=== PATIENT | male | born 1940 | race Caucasian/White ===

== ENCOUNTER → 2022-01-24 | Outpatient (CLI) | payer MEDICARE, OTHER ==
--- NOTE | 2022-01-24 17:55 | Diagnostic Imaging Report ---
INDICATION: Knee pain COMPARISON: None available. TECHNIQUE: 8 radiographs of the bilateral knees dated 01/24/2022. FINDINGS: Right: No acute fracture or dislocation. No destructive osseous process. Severe medial joint space narrowing and mild lateral joint space narrowing. Minimal osteophytosis. No knee joint effusion. Calcifications are noted involving the distal quadriceps tendon. Advanced background vascular calcifications. The patella is well seated within the trochlea. Left: No acute fracture or dislocation. No destructive osseous process. Severe medial joint space narrowing and mild lateral joint space narrowing. Faint chondrocalcinosis of the menisci suggested. No knee joint effusion. Calcifications associated with the distal quadriceps tendon. Advanced background vascular calcifications. The patella is well seated within the trochlea with mild medial joint space narrowing. 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 Advanced background vascular calcifications. Dictated by: Dictated on workstation # [id number]
== END ==
LOC: ORTHO 10:00
PROVIDERS: ATTEND Orthopaedic Surgery
DX: M17.0 Bilateral primary osteoarthritis of knee (principal)
CPT/HCPCS: 20610

== ENCOUNTER → 2022-04-26 | Outpatient (CLI) | payer MEDICARE, OTHER | LOC: ORTHO 10:58 | PROVIDERS: ATTEND Orthopaedic Surgery | DX: M17.0 Bilateral primary osteoarthritis of knee (principal) | CPT/HCPCS: 20610 ==

== ENCOUNTER → 2022-11-07 | Outpatient (CLI) | payer MEDICARE, OTHER | LOC: ORTHO 09:50 | PROVIDERS: ATTEND Orthopaedic Surgery | DX: M17.0 Bilateral primary osteoarthritis of knee (principal); I10 Essential (primary) hypertension | CPT/HCPCS: 20610; G0463; 99213 ==

== ENCOUNTER → 2023-01-09 | Outpatient (CLI) | payer MEDICARE, OTHER | LOC: ORTHO 09:50 | PROVIDERS: ATTEND Orthopaedic Surgery | DX: M17.0 Bilateral primary osteoarthritis of knee (principal) | CPT/HCPCS: 99213 ==